=== PATIENT | female | born 1985 | race Caucasian/White ===

== ENCOUNTER 2021-05-22 16:07 | Emergency (ER) | payer MEDICAID ==
[~2021-05-22] VITALS: Ht 157.5 cm; Wt 88.0 kg
[2021-05-22 16:20] VITALS: BP 134/80
[2021-05-22] MEDS ORDERED: TETanus/Pertussis (Acell)/Diphther VAC/PF (Tdap-Adult) 0.5ml syringe IMVAC ONE (16:45)
[2021-05-22] MEDS ORDERED: amox tr/potassium clavulanate 875/125mg TAB PO ONE (16:45)
[2021-05-22] MEDS ORDERED: AMOX-117 PO (16:47)
== END 2021-05-22 17:02 | disposition home or self-care (01) ==
LOC: ER 16:09
DX: S81.852A Open bite, left lower leg, initial encounter (principal); W54.0XXA Bitten by dog, initial encounter; Y93.89 Activity, other specified; Y92.89 Other specified places as the place of occurrence of the external cause; Y99.8 Other external cause status
CPT/HCPCS: 90471; 90715; 99283